=== PATIENT | male | born 1990 | race Caucasian/White ===

== ENCOUNTER 2017-01-10 12:31 | Emergency (ER) | payer BC ==
[~2017-01-10] VITALS: Ht 177.8 cm; Wt 64.9 kg
[2017-01-10 12:33] VITALS: TEMP 36.7; Ht 177.8 cm; Wt 64.9 kg
[2017-01-10 13:28] LABS: BASO % 0.7 %; BASO ABS # 0.05 K/uL (0-0.2); COMPLETE YES; EOS % 2.2 %; HEMATOCRIT 41.5 % (42-52); IG% 0.1 %; LYMPH % 29.9 %; LYMPH ABS # 2.01 K/uL (1.2-3.4); MEAN CELL VOLUME 91.2 fL (80-100); MEAN CORPUSCULAR HEMOGLOBIN 32.3 pg (25-34); MEAN CORPUSCULAR HGB CONC 35.4 g/dl (32-36); MEAN PLATELET VOLUME 11.6 fL (7.4-10.4); MONO % 9.1 %; PLATELET COUNT 204 K/uL (130-400); RED BLOOD COUNT 4.55 M/uL (4.7-6.1); WHITE BLOOD COUNT 6.73 K/uL (4.8-10.8)
[2017-01-10] MEDS ORDERED: CETI5TAB5 PO (13:41)
[2017-01-10 13:43] LABS: BLOOD UREA NITROGEN 9 mg/dl (7-18); BUN/CREATININE RATIO 12.1 (10-20); CALCIUM 8.9 mg/dl (8.5-10.1); CARBON DIOXIDE 30 mmol/L (21-32); CHLORIDE 106 mmol/L (98-107); CREATININE 0.78 mg/dl (0.60-1.40); GLUCOSE 116 mg/dl (70-99); POTASSIUM 4.1 mmol/L (3.5-5.1); SODIUM 141 mmol/L (136-145)
--- NOTE | 2017-01-10 14:26 | DIAGNOSTIC IMAGING REPORT ---
CHEST 2 VIEWS ROUTINE CLINICAL HISTORY: right sided chest pain dyspnea COMPARISON STUDY: No previous studies for comparison. FINDINGS: The bones soft tissues and hemidiaphragms are normal. The cardiomediastinal silhouette is normal. The lungs are clear. The pulmonary vasculature is normal. IMPRESSION: Negative chest. Electronically signed by: Elton Williamson M.D. 01/10/2017 2:25 PM Dictated Date/Time: 01/10/2017 2:25 PM
--- NOTE | 2017-01-10 14:48 | EMERGENCY ROOM VISIT NOTE ---
History First contact with patient: 12:44 Chief Complaint: CHEST PAIN Stated Complaint: CHEST PAIN Nursing Triage Summary: pt c/o chest pain started last monday thought pulled something but pain remains. has been lifting to move things. horsing around. described as being punched in chest. feels sob History of Present Illness The patient is a 26 year old male who presents to the Emergency Room with complaints of right-sided chest pain which began one week ago. The patient states that he has had an achy pain in the right side of his chest which is worse with coughing, deep inspiration or moving. He rates the discomfort a 5/ 10. He has been taking Tylenol with some relief. The patient states that prior to the onset of the pain, he had been moving heavy boxes and had also been tackled by a younger family member. He denies any palpitations, shortness of breath, recent illnesses, fevers/chills, nausea, vomiting or syncopal episodes. He denies any history of cardiac disease or family history of heart disease at a young age. Review of Systems A complete 10 point review of systems was reviewed with the patient with pertinent positives and negatives as per history of present illness. All else were negative. Social History Smoking Status: Current Some Day Smoker Current/Historical Medications Scheduled Cetirizine Hcl (Zyrtec), 5 MG PO DAILY Allergies Coded Allergies: No Known Allergies (Unverified , 01/10/17) Physical Exam Vital Signs Date Time Temp Pulse Resp B/P Pulse Ox O2 Delivery O2 Flow Rate FiO2 01/10/17 14:49 88 19 119/71 100 01/10/17 14:21 88 19 119/71 100 01/10/17 13:12 78 01/10/17 12:33 36.7 100 18 148/80 96 Room Air Physical Exam VITALS: Vitals are noted on the nurse's note and reviewed by myself. Vital signs stable. GENERAL: This is a 26-hour male, in no acute distress, nondiaphoretic, well- developed well-nourished. SKIN: Capillary reflex less than 2 seconds. HEENT: Normocephalic. PERRLA. EOMI. Nares patent. Mucous membranes moist. Neck is supple without nuchal rigidity. HEART: Regular rate and rhythm without murmurs gallops or rubs. LUNGS: Clear to auscultation bilaterally without wheezes, rales or rhonchi. No retractions or accessory muscle use. ABDOMEN: Positive bowel sounds x 4. Soft, nontender to palpation. NEURO: Patient was alert and oriented to person place and time. Medical Decision & Procedures ER Provider Diagnostic Interpretation: CHEST 2 VIEWS ROUTINE FINDINGS: The bones soft tissues and hemidiaphragms are normal. The cardiomediastinal silhouette is normal. The lungs are clear. The pulmonary vasculature is normal. IMPRESSION: Negative chest. Laboratory Results 01/10/17 13:05 Red Blood Count 4.55, Mean Corpuscular Volume 91.2, Mean Corpuscular Hemoglobin 32.3, Mean Corpuscular Hemoglobin Concent 35.4, Mean Platelet Volume 11.6, Neutrophils (%) (Auto) 58.0, Lymphocytes (%) (Auto) 29.9, Monocytes (%) (Auto) 9.1, Eosinophils (%) (Auto) 2.2, Basophils (%) (Auto) 0.7, Neutrophils # (Auto) 3.90, Lymphocytes # (Auto) 2.01, Monocytes # (Auto) 0.61, Eosinophils # (Auto) 0.15, Basophils # (Auto) 0.05 01/10/17 13:05 Test 01/10/17 13:05 White Blood Count 6.73 K/uL (4.8-10.8) Red Blood Count 4.55 M/uL (4.7-6.1) Hemoglobin 14.7 g/dL (14.0-18.0) Hematocrit 41.5 % (42-52) Mean Corpuscular Volume 91.2 fL (80-100) Mean Corpuscular Hemoglobin 32.3 pg (25-34) Mean Corpuscular Hemoglobin Concent 35.4 g/dl (32-36) Platelet Count 204 K/uL (130-400) Mean Platelet Volume 11.6 fL (7.4-10.4) Neutrophils (%) (Auto) 58.0 % Lymphocytes (%) (Auto) 29.9 % Monocytes (%) (Auto) 9.1 % Eosinophils (%) (Auto) 2.2 % Basophils (%) (Auto) 0.7 % Neutrophils # (Auto) 3.90 K/uL (1.4-6.5) Lymphocytes # (Auto) 2.01 K/uL (1.2-3.4) Monocytes # (Auto) 0.61 K/uL (0.11-0.59) Eosinophils # (Auto) 0.15 K/uL (0-0.5) Basophils # (Auto) 0.05 K/uL (0-0.2) RDW Standard Deviation 41.4 fL (36.4-46.3) RDW Coefficient of Variation 12.4 % (11.5-14.5) Immature Granulocyte % (Auto) 0.1 % Immature Granulocyte # (Auto) 0.01 K/uL (0.00-0.02) Anion Gap 5.0 mmol/L (3-11) Est Creatinine Clear Calc Drug Dose 134.1 ml/min Estimated GFR () 146.4 Estimated GFR (Non- 126.3 BUN/Creatinine Ratio 12.1 (10-20) Calcium Level 8.9 mg/dl (8.5-10.1) Troponin I < 0.015 ng/ml (0-0.045) ECG Indication: chest pain Rate (beats per minute): 92 Rhythm: normal sinus Findings: no acute ischemic change, no ectopy Comparison ECG Date: no prior available Medical Decision Differential diagnosis includes acute coronary syndrome, pulmonary embolism, pneumothorax, pericarditis, myocarditis, endocarditis, anxiety, musculoskeletal pain, GERD, costochondritis, pneumonia, among others. The patient is a 26-year-old male who presents today complaining of right-sided chest pain for the past one week. Labs revealed no leukocytosis, anemia or concerning electrolyte abnormalities. Troponin was not elevated. Chest x-ray was unremarkable. He does have reproducible chest pain on palpation. EKG was unremarkable. I feel that he likely has costal chondritis or other musculoskeletal cause of his pain. He was instructed to follow-up with his primary care provider within 48 hours and take ibuprofen for the pain. He will return here for any worsening of his current condition. Based on the patient's presentation and work up, I feel the patient is stable for outpatient treatment. The patient was educated to return to the emergency department for any worsening of their current condition or new/concerning symptoms. He will follow up with his primary care provider. Impression Primary Impression: Right-sided chest pain Departure Information Dispostion Home / Self-Care Condition GOOD Referrals Abhishek Anaya Jr,D.O. (PCP) Patient Instructions My [facility] Additional Instructions You have been treated in the Emergency Department for your Non-Cardiac Chest Pain. Laboratory results and Imaging Studies have ruled out any acute cardiac or pulmonary cause of your chest pain. For pain control, you can use the following [id number] medicines (if >12 yo): - Regular strength (325mg/tab) Tylenol (acetaminophen) 2 tabs every 4-6 hours as needed. Do not exceed 12 tablets in a 24 hour period. Avoid taking more than 4 grams (4000 mg) of Tylenol per day. This includes any other sources of acetaminophen you may take on a regular basis. - Regular strength (200 mg/tab) Advil (ibuprofen) 3 tabs every 6-8 hours as needed. Do not exceed a dose of 3200 mg per day. You should schedule a follow-up appointment with your Primary Care Provider in 2 -3 days for further evaluation from today's Emergency Department visit. Return to the Emergency Department if your current symptoms worsen despite treatment course outlined above, or if you develop any of the following symptoms : worsening chest pain, associated jaw/arm pain, nausea, dizziness, shortness of breath, bloody cough, or fainting.
[2017-01-10 14:49] VITALS: BP 119/71; PULSE 88; O2SAT 100
== END 2017-01-10 14:50 | disposition home or self-care (01) ==
LOC: C.EDB 12:33 → C.EDA 14:50
DX: R07.9 Chest pain, unspecified (principal); F17.210 Nicotine dependence, cigarettes, uncomplicated; Z79.899 Other long term (current) drug therapy

== ENCOUNTER 2017-01-12 12:03 | Emergency (ER) | payer BC ==
[~2017-01-12] VITALS: Ht 177.8 cm; Wt 65.4 kg
[~2017-01-12 12:03] MED LIST: CETI5TAB5 PO
[2017-01-12 12:06] VITALS: TEMP 36.7
[2017-01-12] MEDS ORDERED: ACET325T96 PO (12:26)
[2017-01-12] MEDS ORDERED: ONDANSETRON INJ 2 MG/ML 2 ML VIAL IV STA (12:40)
[2017-01-12] MEDS ORDERED: SODIUM CHLORIDE 0.9% 1000ML 1,000 ML IV STA (12:40)
[2017-01-12 13:03] VITALS: O2SAT 99
[2017-01-12 13:05] VITALS: Ht 177.8 cm; Wt 65.4 kg
[2017-01-12 13:24] LABS: BASO % 0.4 %; BASO ABS # 0.03 K/uL (0-0.2); COMPLETE YES; EOS % 1.7 %; HEMATOCRIT 40.3 % (42-52); IG% 0.1 %; LYMPH % 18.3 %; LYMPH ABS # 1.36 K/uL (1.2-3.4); MEAN CELL VOLUME 91.4 fL (80-100); MEAN CORPUSCULAR HEMOGLOBIN 32.4 pg (25-34); MEAN CORPUSCULAR HGB CONC 35.5 g/dl (32-36); MEAN PLATELET VOLUME 11.4 fL (7.4-10.4); MONO % 10.3 %; NEUT % 69.2 %; PLATELET COUNT 177 K/uL (130-400); RED BLOOD COUNT 4.41 M/uL (4.7-6.1); WHITE BLOOD COUNT 7.45 K/uL (4.8-10.8)
[2017-01-12 13:36] LABS: ALT/SGPT 21 U/L (12-78); AST/SGOT 17 U/L (15-37); BLOOD UREA NITROGEN 9 mg/dl (7-18); BUN/CREATININE RATIO 8.6 (10-20); CALCIUM 9.2 mg/dl (8.5-10.1); CARBON DIOXIDE 31 mmol/L (21-32); CHLORIDE 107 mmol/L (98-107); GLUCOSE 96 mg/dl (70-99); POTASSIUM 4.2 mmol/L (3.5-5.1); SODIUM 143 mmol/L (136-145)
--- NOTE | 2017-01-12 13:36 | DIAGNOSTIC IMAGING REPORT ---
CHEST ONE VIEW PORTABLE CLINICAL HISTORY: Weakness. COMPARISON STUDY: Chest radiograph January 10, 2017. FINDINGS: Lung volumes are normal. Lungs are clear. There is no pneumothorax or pleural effusion. Cardiac size is normal. Mediastinal contours are normal. There is no evidence of pulmonary edema. IMPRESSION: No acute cardiopulmonary findings. Electronically signed by: Mehdi Das M.D. 01/12/2017 1:35 PM Dictated Date/Time: 01/12/2017 1:34 PM
[2017-01-12 13:40] LABS: URINE APPEARANCE CLEAR (CLEAR); URINE BILIRUBIN NEG (NEG); URINE COLOR YELLOW; URINE NITRITE NEG (NEG); URINE SPECIFIC GRAVITY 1.005 (1.000-1.030); UROBILINOGEN NEG (NEG)
[2017-01-12 13:41] LABS: ALKALINE PHOSPHATASE 79 U/L (45-117)
[2017-01-12 13:50] LABS: MANUAL MICROSCOPIC REQUIRED? NO; REVIEW REQ? NO
[2017-01-12 14:31] VITALS: BP 111/69; PULSE 76; O2SAT 98
--- NOTE | 2017-01-12 17:25 | EMERGENCY ROOM VISIT NOTE ---
History Report prepared by Anil: Phyllis Kapoor Under the Supervision of: Dr. Marco Antonio Patel D.O. First contact with patient: 12:31 Chief Complaint: SHORTNESS OF BREATH Stated Complaint: CP, SOB Nursing Triage Summary: triage note: pt reports he was seen in ed on monday for chest and shortness of breath. pt reports he was dx with costochondritis. pt reports increased shortness of breath since yesterday. History of Present Illness The patient is a 26 year old male who presents to the Emergency Room with complaints of worsening shortness of breath for the past couple of days. The patient was in the ED two days ago. He was evaluated for right-sided chest pain that he had been experiencing for a week, and he was diagnosed with costochondritis. The patient states that his chest pain has improved, but yesterday he started experiencing worsening shortness of breath and lightheadedness. His symptoms are worse with changing positions. He has also been feeling generally weak all over and more tired than usual. He has been eating and drinking normally. He rates his current pain as a 5/10 in severity. The patient denies cough, rhinorrhea, sore throat, fever, leg pain or swelling, recent surgery, and any recent long trips. He denies any personal history of cancer, hemoptysis, previous clots, diabetes, hyperlipidemia, CAD or hypertension. There is no family history of sudden at a young age. Source of History: patient Onset: 2 days ago Position: chest (respiratory) Symptom Intensity: 5/10 Quality: other (shortness of breath) Timing: worsening Modifying Factors (Worsening): other (changing position) Associated Symptoms: + fatigue, + weakness, No cough, No fevers, No sorethroat Note: Pt notes lightheadedness. Review of Systems See HPI for pertinent positives & negatives. A total of 10 systems reviewed and were otherwise negative. Past Medical & Surgical Medical Problems: (1) Chronic tonsillitis Family History Diabetes mellitus FH: cancer Social History Smoking Status: Current Some Day Smoker Alcohol Use: occasionally Marital Status: single Housing Status: lives with family Occupation Status: employed Current/Historical Medications Scheduled Acetaminophen Tab (Tylenol), 3 TAB PO Q6 Cetirizine Hcl (Zyrtec), 1 TAB PO DAILY Allergies Coded Allergies: No Known Allergies (Unverified , 01/10/17) Physical Exam Vital Signs Date Time Temp Pulse Resp B/P Pulse Ox O2 Delivery O2 Flow Rate FiO2 01/12/17 14:31 76 18 111/69 98 01/12/17 13:03 99 Room Air 01/12/17 13:03 99 Room Air 01/12/17 13:00 82 01/12/17 12:54 64 12 114/72 100 Room Air 80 114/77 98 124/88 01/12/17 12:06 36.7 86 18 138/94 99 Room Air Physical Exam GENERAL: alert, sitting up in bed, well appearing, well nourished, no distress, non-toxic EYE EXAM: normal conjunctiva OROPHARYNX: no exudate, no erythema, lips, buccal mucosa, and tongue normal and mucous membranes are moist NECK: supple, no nuchal rigidity, no adenopathy, non-tender LUNGS: Clear to auscultation. Normal chest wall mechanics HEART: no murmurs, S1 normal and S2 normal ABDOMEN: abdomen soft, non-tender, normo-active bowel sounds, no masses, no rebound or guarding. BACK: Back is symmetrical on inspection and there is no deformity, no midline tenderness, no CVA tenderness. SKIN: no rashes and no bruising UPPER EXTREMITIES: upper extremities are grossly normal. LOWER EXTREMITIES: No pitting edema. Calves equal bilaterally. NEURO EXAM: Normal sensorium, cranial nerves II-XII intact, normal speech, no weakness of arms, no weakness of legs. No drift. Finger to nose intact. Gross sensation intact. Medical Decision & Procedures ER Provider Diagnostic Interpretation: Radiology results as stated below per my review and the radiologist's interpretation: CHEST ONE VIEW PORTABLE CLINICAL HISTORY: Weakness. COMPARISON STUDY: Chest radiograph January 10, 2017. FINDINGS: Lung volumes are normal. Lungs are clear. There is no pneumothorax or pleural effusion. Cardiac size is normal. Mediastinal contours are normal. There is no evidence of pulmonary edema. IMPRESSION: No acute cardiopulmonary findings. Electronically signed by: Mehdi Das M.D. 01/12/2017 1:35 PM Dictated Date/Time: 01/12/2017 1:34 PM Laboratory Results 01/12/17 12:45 Red Blood Count 4.41, Mean Corpuscular Volume 91.4, Mean Corpuscular Hemoglobin 32.4, Mean Corpuscular Hemoglobin Concent 35.5, Mean Platelet Volume 11.4, Neutrophils (%) (Auto) 69.2, Lymphocytes (%) (Auto) 18.3, Monocytes (%) (Auto) 10.3, Eosinophils (%) (Auto) 1.7, Basophils (%) (Auto) 0.4, Neutrophils # (Auto ) 5.15, Lymphocytes # (Auto) 1.36, Monocytes # (Auto) 0.77, Eosinophils # (Auto ) 0.13, Basophils # (Auto) 0.03 01/12/17 12:45 Test 01/12/17 12:45 01/12/17 12:53 01/12/17 13:00 White Blood Count 7.45 K/uL (4.8-10.8) Red Blood Count 4.41 M/uL (4.7-6.1) Hemoglobin 14.3 g/dL (14.0-18.0) Hematocrit 40.3 % (42-52) Mean Corpuscular Volume 91.4 fL (80-100) Mean Corpuscular Hemoglobin 32.4 pg (25-34) Mean Corpuscular Hemoglobin Concent 35.5 g/dl (32-36) Platelet Count 177 K/uL (130-400) Mean Platelet Volume 11.4 fL (7.4-10.4) Neutrophils (%) (Auto) 69.2 % Lymphocytes (%) (Auto) 18.3 % Monocytes (%) (Auto) 10.3 % Eosinophils (%) (Auto) 1.7 % Basophils (%) (Auto) 0.4 % Neutrophils # (Auto) 5.15 K/uL (1.4-6.5) Lymphocytes # (Auto) 1.36 K/uL (1.2-3.4) Monocytes # (Auto) 0.77 K/uL (0.11-0.59) Eosinophils # (Auto) 0.13 K/uL (0-0.5) Basophils # (Auto) 0.03 K/uL (0-0.2) RDW Standard Deviation 41.5 fL (36.4-46.3) RDW Coefficient of Variation 12.3 % (11.5-14.5) Immature Granulocyte % (Auto) 0.1 % Immature Granulocyte # (Auto) 0.01 K/uL (0.00-0.02) D-Dimer 260 ug/L FEU (0-500) Anion Gap 5.0 mmol/L (3-11) Est Creatinine Clear Calc Drug Dose 105.4 ml/min Estimated GFR () 121.6 Estimated GFR (Non- 104.9 BUN/Creatinine Ratio 8.6 (10-20) Calcium Level 9.2 mg/dl (8.5-10.1) Total Bilirubin 0.6 mg/dl (0.2-1) Direct Bilirubin 0.2 mg/dl (0-0.2) Aspartate Amino Transf (AST/SGOT) 17 U/L (15-37) Alanine Aminotransferase (ALT/SGPT) 21 U/L (12-78) Alkaline Phosphatase 79 U/L (45-117) Troponin I < 0.015 ng/ml (0-0.045) Total Protein 7.7 gm/dl (6.4-8.2) Albumin 4.6 gm/dl (3.4-5.0) Bedside Glucose 88 mg/dl (70-99) Urine Color YELLOW Urine Appearance CLEAR (CLEAR) Urine pH 7.0 (4.5-7.5) Urine Specific Beaver 1.005 (1.000-1.030) Urine Protein NEG (NEG) Urine Glucose (UA) NEG (NEG) Urine Ketones NEG (NEG) Urine Occult Blood NEG (NEG) Urine Nitrite NEG (NEG) Urine Bilirubin NEG (NEG) Urine Urobilinogen NEG (NEG) Urine Leukocyte Esterase NEG (NEG) Laboratory results per my review. Medications Administered Medications (Trade) Dose Ordered Sig/Rosa Route Start Time Stop Time Status Last Admin Dose Admin Sodium Chloride (Nss 1000ml) 1,000 ml @ 999 mls/hr Q1H1M STAT IV 01/12/17 12:40 01/12/17 13:40 DC 01/12/17 12:40 999 MLS/HR ECG Indication: chest pain, SOB/dyspnea Rate (beats per minute): 68 Rhythm: normal sinus Findings: no acute ischemic change, no ectopy, other (normal axis) ED Course ED COURSE: Vital signs were reviewed and showed normal vitals. The patients medical record was reviewed The above diagnostic studies were performed and reviewed. ED treatments and interventions as stated above. 1231: The patient was evaluated in room A2. A complete history and physical examination was performed. 1240: Zofran 4 mg IV - pt refused; NSS 1000 ml @ 999 mls/hr IV 1422: Upon reevaluation, the patient is feeling better and resting comfortably. I discussed my findings with the patient and he understands and agrees with the treatment plan. Based on the patients age, coexisting illnesses, exam and lab findings the decision to treat as an outpatient was made. The patient remained stable while under my care. The patient appeared well at the time of discharge. Medical Decision Differential diagnoses includes but is not limited to pneumonia, bronchitis, COPD/Asthma exacerbation, pneumothorax, pulmonary embolism, congestive heart failure, acute coronary syndrome. Patient is a 26-year-old male who presents the ER for dizziness, weakness and improving chest pain. He has had chest pain since this past week which has been gradually improving. Labs including CBC, BMP, LFTs, bilirubin or unremarkable. Troponin and d-dimer were negative. UA was negative. EKG was negative. Patient is a extremely low risk for any cardiac disease and with his negative troponin did not feel the need to pursue this any further. With his negative d-dimer I felt he is also had a low risk for PE and a CT at this time would not be beneficial. Dizziness appears to be present with changing positions, consequently I do believe that this is likely secondary to decreased intake however cannot be certain. Patient was updated regards to his findings and was discharged follow-up with his primary care doctor. Discussed with Pt concerning signs and symptoms to watch out for. Pt was instructed to follow up with their PCP and discussed with the patient their option to return to the ED at anytime for persistent or worsening symptoms. The appropriate anticipatory guidance and out-patient management, including indications for return to the emergency department, were explained at length to the patient and understood. Impression Primary Impression: Dizzy Additional Impression: Chest pain Scribe Attestation The scribe's documentation has been prepared under my direction and personally reviewed by me in its entirety. I confirm that the note above accurately reflects all work, treatment, procedures, and medical decision making performed by me. Departure Information Dispostion Home / Self-Care Referrals Abhishek Anaya Jr,D.O. (PCP) Forms HOME CARE DOCUMENTATION FORM, IMPORTANT VISIT INFORMATION Patient Instructions ED Dizziness KHANG, [facility] Additional Instructions Please follow up with your primary care doctor with in the next 24 hours. Any worsening of your symptoms, please return to the ED immediately. This includes recurrence of your dizziness, weakness in your arms or legs, confusion, shortness of breath, or any other concerning signs or symptoms from your standpoint. Please keep your appointment with cardiology. Problem Qualifiers Additional Impression: Chest pain Chest pain type: unspecified Qualified Codes: R07.9 - Chest pain, unspecified
== END 2017-01-12 14:34 | disposition home or self-care (01) ==
LOC: C.EDB 12:03 → C.EDA 14:34
DX: R42 Dizziness and giddiness (principal); R07.9 Chest pain, unspecified; F17.210 Nicotine dependence, cigarettes, uncomplicated; Z83.3 Family history of diabetes mellitus; Z80.9 Family history of malignant neoplasm, unspecified; Z79.899 Other long term (current) drug therapy

== ENCOUNTER → 2017-01-13 | Outpatient (CLI) | payer BC ==
[~2017-01-13] MED LIST changes: +ACET325T96 PO; +OPTIRAY 320 IV PRN
--- NOTE | 2017-01-13 12:00 | DIAGNOSTIC IMAGING REPORT ---
CT ANGIOGRAM OF THE CHEST COMBO CLINICAL HISTORY: Atypical chest pain. Dyspnea. Recent chest trauma. COMPARISON STUDY: Chest x-ray dated 01/12/2017. TECHNIQUE: Before and following the IV administration of 93 cc of Optiray 320, CT angiogram of the chest was performed from the thoracic inlet to the upper abdomen utilizing the dissection protocol. Images are reviewed in the axial, sagittal, and coronal planes. 3-D MIPS images are created and assessed. IV contrast was administered without complication. CT DOSE: 436.77 mGy.cm FINDINGS: Thyroid: Imaged portions of the thyroid gland are normal in size and attenuation. Thoracic aorta: No intramural hematoma is seen on the unenhanced series. The thoracic aorta is normal in caliber and demonstrates standard 3-vessel arch anatomy. No dissection is seen. The arch vessels are widely patent. Pulmonary vasculature: The pulmonary trunk is normal in caliber. There are no central filling defects identified in the pulmonary vessels to suggest pulmonary embolus. Note that this examination was not specifically protocoled to assess for pulmonary emboli. Heart: The heart is normal in size and configuration, and without pericardial effusion. Lungs and pleural spaces: There are small fat-containing Bochdalek hernia is present at both lung bases. The lungs and pleural spaces are clear. No pneumothorax is seen. The trachea and central airways are patent. Mediastinum: There is no mediastinal lymphadenopathy. Sue: Clear. Axillae: There is no axillary lymphadenopathy. Upper abdomen: Partially visualized upper abdominal viscera is within normal limits. Skeletal structures: No fracture is identified. No lytic or blastic bony lesions are seen. A small hemangioma is incidentally noted in the body of T8. IMPRESSION: 1. Unremarkable CT angiogram of the thoracic aorta. 2. The lungs are clear. Electronically signed by: Valdo Tay M.D. 01/13/2017 11:59 AM Dictated Date/Time: 01/13/2017 11:54 AM
== END | disposition home or self-care (01) ==
LOC: C.CTS 11:25
DX: R07.9 Chest pain, unspecified (principal); R06.02 Shortness of breath

== ENCOUNTER → 2017-05-03 | Outpatient (CLI) | payer BC ==
[~2017-05-03] MED LIST changes: -OPTIRAY 320 IV PRN
== END | disposition home or self-care (01) ==
LOC: C.LABSPEC 13:52
DX: J02.0 Streptococcal pharyngitis (principal)

== ENCOUNTER → 2017-05-18 | Outpatient (CLI) | payer BC ==
--- NOTE | 2017-05-23 01:48 | PULMONARY FUNCTION TEST ---
Spirometry is normal. Repeat study done, following bronchodilators, showed no change in function. Flow volume loops were consistent with spirometric findings.
== END | disposition home or self-care (01) ==
LOC: C.RC 10:31
DX: R06.00 Dyspnea, unspecified (principal)

== ENCOUNTER → 2017-06-29 | Outpatient (CLI) | payer BC ==
--- NOTE | 2017-06-29 12:45 | DOBUTAMINE ECHO ---
*NOTICE TO RECEIVING CONSTITUTION PARTY AGENCY This information is strictly Confidential and protected under [place] law. [place] law prohibits you from making any further disclosure of this information unless further disclosure is expressly permitted by the written consent of the person to whom it pertains or is authorized by law. A general authorization for the release of medical or other information is not sufficient for this purpose. Hospital accepts no responsibility if the information is made available to any other person, INCLUDING THE PATIENT. Interpretation Summary * Name: VALENTIN BAEZA Study Date: 06/29/2017 10:35 AM BP: 129/76 mmHg * Patient Location: [facility] HR: 78 * : 1990 (M/d/yyyy) Gender: Male Height: 70 in * Age: 26 yrs Ethnicity: CA Weight: 145 lb * Ordering Physician: Abhishek Anaya * Referring Physician: Abhishek Anaya D.O. * Performed By: Nydia Espino RDCS * * Reason For Study: REDUCED EXERCISE TOLERANCE * BSA: 1.8 m2 * -- Conclusions -- * Left ventricular systolic function is normal. * Normal echocardiogram * Normal stress echocardiogram without evidence of inducible ischemia Procedure Details * ECHOEX, CPT #28789 Left Ventricular Findings with Stress * Normal stress echocardiogram without evidence of inducible ischemia Left Ventricle * The left ventricle is normal in size. * There is normal left ventricular wall thickness. * Ejection Fraction = 60-65%. * Left ventricular systolic function is normal. * Normal diastolic function * The left ventricular wall motion is normal at rest. Right Ventricle * The right ventricle is normal in size and function. * The right ventricular systolic function is normal as assessed by tricuspid annular plane systolic excursion (TAPSE) (normal >1.5 cm). Atria * The left atrial size is normal. * Right atrial size is normal. Mitral Valve * The mitral valve anatomy is normal. * There is no mitral regurgitation noted. Tricuspid Valve * The tricuspid valve anatomy is normal. * There is trace tricuspid regurgitation. Aortic Valve * The aortic valve is trileaflet. * Some thickening of the aortic valve was noted. * No hemodynamically significant valvular aortic stenosis. * There is no significant aortic regurgitation. Great Vessels * The aortic root is normal size. Pericardium * There is no pericardial effusion. Stress Parameters * Baseline EKG was normal * Stress ECG: No ST changes. No arrhythmias. * Rest heart rate was '78' BPM. * Rest blood pressure was '129/76' * Maximum heart rate achieved was 190 bpm. * Maximum heart rate was 96 % of maximum age-predicted heart rate. * Maximum blood pressure was '187/77' * Total exercise time was '12:00' * Maximum exercise MET level achieved was '13.40' METS * Maximum treadmill speed was '4.20' miles per hour. * Maximum treadmill elevation was '16.00'% grade. * Exercise was terminated due to 'ACHIEVING TARGET HR' Left Ventricular Findings with Stress * Baseline EKG was normal There are no significant ST segment changes during exercise or recovery Baseline echocardiogram was normal There was normal augmentation of all mccall without development of wall motion abnormalities during exercise No symptoms reported Baseline heart rate was tachycardia but there was normal heart rate and blood pressure response to exercise Richey treadmill score: 12 (low risk) MMode 2D Measurements and Calculations IVSd 1.1 cm IVSs 1.3 cm LVIDd 4.1 cm LVIDs 3.0 cm LVPWd 1.1 cm LVPWs 1.3 cm IVS/LVPW 1.0 FS 26.9 % EDV(Teich) 76.3 ml ESV(Teich) 35.9 ml EF(Teich) 53.0 % EDV(cubed) 71.4 ml ESV(cubed) 27.8 ml EF(cubed) 61.0 % % IVS thick 24.4 % % LVPW thick 23.5 % LV mass(C)d 149.1 grams LV mass(C)dI 81.9 grams/m\S\2 LV mass(C)s 131.2 grams LV mass(C)sI 72.0 grams/m\S\2 SV(Teich) 40.4 ml SI(Teich) 22.2 ml/m\S\2 SV(cubed) 43.5 ml SI(cubed) 23.9 ml/m\S\2 Ao root diam 3.0 cm Ao root area 7.1 cm\S\2 LA dimension 2.9 cm LA/Ao 0.97 LVAd ap4 27.5 cm\S\2 LVLd ap4 7.5 cm EDV(MOD-sp4) 85.5 ml EDV(sp4-el) 85.5 ml LVAs ap4 15.5 cm\S\2 LVLs ap4 6.1 cm ESV(MOD-sp4) 33.3 ml ESV(sp4-el) 33.7 ml EF(MOD-sp4) 61.1 % EF(sp4-el) 60.5 % LVAd ap2 31.6 cm\S\2 LVLd ap2 8.0 cm EDV(MOD-sp2) 105.5 ml EDV(sp2-el) 105.9 ml LVAs ap2 17.3 cm\S\2 LVLs ap2 6.4 cm ESV(MOD-sp2) 41.1 ml ESV(sp2-el) 39.8 ml EF(MOD-sp2) 61.0 % EF(sp2-el) 62.4 % LVLd %diff 6.0 % EDV(MOD-bp) 96.0 ml LVLs %diff 4.8 % ESV(MOD-bp) 36.6 ml EF(MOD-bp) 61.8 % SV(MOD-sp4) 52.3 ml SI(MOD-sp4) 28.7 ml/m\S\2 SV(MOD-sp2) 64.4 ml SI(MOD-sp2) 35.4 ml/m\S\2 SV(MOD-bp) 59.4 ml SI(MOD-bp) 32.6 ml/m\S\2 SV(sp4-el) 51.7 ml SI(sp4-el) 28.4 ml/m\S\2 SV(sp2-el) 66.1 ml SI(sp2-el) 36.3 ml/m\S\2 Doppler Measurements and Calculations MV E max srikanth 94.9 cm/sec MV A max srikanth 39.9 cm/sec MV E/A 2.4 MV dec time 0.20 sec Ao V2 max 101.4 cm/sec Ao max PG 4.1 mmHg Ao max PG (full) 0.43 mmHg LV V1 max PG 3.7 mmHg LV V1 max 96.0 cm/sec TR max srikanth 173.4 cm/sec
== END | disposition home or self-care (01) ==
LOC: C.CPL 09:19
DX: R01.1 Cardiac murmur, unspecified (principal); R06.00 Dyspnea, unspecified